=== PATIENT | female | born 1985 | race Caucasian/White ===

== ENCOUNTER 2017-01-14 13:02 | Emergency (ER) | payer SELFPAY ==
[~2017-01-14] VITALS: Ht 175.3 cm; Wt 87.7 kg
[~2017-01-14 13:02] MED LIST: HYDR-3533 PO; PENI500T PO
[2017-01-14 13:05] VITALS: BP 109/75; PULSE 72; RESP 16; TEMP 98.3; O2SAT 97
[2017-01-14] MEDS ORDERED: PENI500T PO ×2 (13:12→13:13)
--- NOTE | 2017-01-14 13:13 | PD ---
HPI Chief Complaint: Oral / Dental Pain or Problem Time Seen by Provider: 13:12 Travel History International Travel<30 days: No Contact w/Intl Traveler<30days: No Traveled to known affect area: No History of Present Illness HPI 30-year-old female with a history of emphysema presents to the emergency department for evaluation of right lower dental pain for 2 days. Patient states that last night she began to have pain in her right lower posterior molars and has had some swelling in this location as well. States that she has a history of dental problems but has yet to follow-up with a dentist. Denies any fever, chills, nausea, vomiting, difficulty swallowing. Denies , last menstrual period 1 week ago. No other complaints. PFSH Past Medical History Blood Disorders: No Anxiety: No Depression: No Cancer: No Cardiovascular Problems: No COPD: Yes (EMPHYSEMA) Diabetes: No Diminished Hearing: No Endocrine: No Gastrointestinal Disorders: No Genitourinary: No Immune Disorder: No Implanted Vascular Access Dvce: No Musculoskeletal: No Neurologic: No Psychiatric: No Reproductive: No Respiratory: No Immunizations Current: Yes ?: Not LMP: 3 DAYS Past Surgical History Section: Yes (2003) Gynecologic Surgery: Yes Thoracic Surgery: Yes (STATES SHE HAD R LUNG SX R/T BACTERIAL PNEUMONIA) Other Surgery: No Social History Alcohol Use: Yes (4-5 BEERS DAILY) Tobacco Use: Yes (1/2 ppd) Substance Use: Yes Allergies-Medications (Allergen,Severity, Reaction): Coded Allergies: No Known Allergies (Verified , 01/14/17) Reported Meds & Prescriptions Reported Meds & Active Scripts Active Penicillin V Potassium 500 Mg Tab 500 Mg PO Q8H 10 Days Review of Systems Except as stated in HPI: all other systems reviewed are Neg Physical Exam Narrative GENERAL: Well-nourished and well-developed pleasant female patient in no acute distress who is nontoxic appearing. SKIN: Warm and dry. HEAD: Normocephalic and atraumatic. No facial swelling. EYES: No injection, drainage, or hyphema noted. PERRLA. EOMI. ENT: No nasal drainage noted. Oropharynx is clear. DENTAL: Poor dentition with multiple dental caries throughout. Right lower molars teeth #28-30 are cracked to the gingiva and decayed with some erythema and swelling of the gingiva. NECK: Supple and the trachea is midline. CARDIOVASCULAR: Regular rate and rhythm. RESPIRATORY: Breath sounds are equal bilaterally with no accessory muscle use, wheezing, rhonchi, or crackles. NEUROLOGICAL: Awake, alert, and oriented. Normal speech and gait. Cranial nerves are grossly intact. Data Data Last Documented VS Vital Signs Date Time Temp Pulse Resp B/P Pulse Ox O2 Delivery O2 Flow Rate FiO2 01/14/17 13:05 98.3 72 16 109/75 97 MDM Medical Decision Making Medical Screen Exam Complete: Yes Emergency Medical Condition: Yes Differential Diagnosis Dental caries versus dental infection versus gingivitis Narrative Course 31-year-old female presents to the emergency department for evaluation of right lower dental pain for 2 days. Patient is afebrile, vital signs are stable. Patient has poor dentition overall and she does have some swelling and erythema of the right lower gingiva where her pain is located. Patient will be placed on penicillin VK. Instructed to follow-up as an outpatient with a dentist. Patient verbalizes understanding and agreement with treatment plan. Diagnosis Primary Impression: Dental infection Referrals: Dentist Patient Instructions: Dental Caries (ED), General Instructions Additional Instructions: Alternate Tylenol and ibuprofen as discharged on the box as needed for pain. Take medication as prescribed with food and a full glass of water. Follow-up with your dentist. Return to the ED for any acute worsening of symptoms. Med/Other Pt SpecificInfo: Prescription(s) given Scripts Penicillin V Potassium 500 Mg [id number] Mg PO Q8H 10 Days Ref 0 Prov:Jana Cazares MD 01/14/17 Disposition: 01 DISCHARGE HOME Condition: Stable Mary Trammell January 14, 2017 13:13
== END 2017-01-14 13:32 | disposition home or self-care (01) ==
LOC: PHEFT 13:02
DX: K04.7 Periapical abscess without sinus (principal); F17.210 Nicotine dependence, cigarettes, uncomplicated
CPT/HCPCS: 99282

== ENCOUNTER 2017-01-19 04:40 | Emergency (ER) | payer OTHER ==
[~2017-01-19] VITALS: Ht 172.7 cm; Wt 90.0 kg
[~2017-01-19 04:40] MED LIST changes: -HYDR-3533 PO
[2017-01-19 04:54] VITALS: BP 118/67; PULSE 83; RESP 18; TEMP 98.5; O2SAT 97
--- NOTE | 2017-01-19 05:04 | PD ---
HPI Chief Complaint: Psychiatric Symptoms Time Seen by Provider: 05:04 Travel History International Travel<30 days: No Contact w/Intl Traveler<30days: No Traveled to known affect area: No History of Present Illness HPI 31-year-old female presents to emergency department under [place] act for psychiatric evaluation. Patient believes this is a possible way for her mother to be sleeping with her boyfriend, and insists that she is not crazy. Per the [place]ado act, patient is scheduled to turn herself in this morning and is facing a 21 day retirement sentence. She was upset about this which caused an argument with her family ultimately resulted in her being placed under Maldonado act. Patient denies suicidal or homicidal ideations. Reports daily alcohol consumption in half pack tobacco cigarette smoking daily. She denies any medical history. No other symptoms to report. PFSH Past Medical History Blood Disorders: No Anxiety: No Depression: No Cancer: No Cardiovascular Problems: No COPD: Yes (EMPHYSEMA) Diabetes: No Diminished Hearing: No Endocrine: No Gastrointestinal Disorders: No Genitourinary: No Immune Disorder: No Implanted Vascular Access Dvce: No Musculoskeletal: No Neurologic: No Psychiatric: No Reproductive: No Respiratory: No Immunizations Current: Yes Tetanus Vaccination: Unknown Influenza Vaccination: No ?: Not Past Surgical History Section: Yes (2003) Gynecologic Surgery: Yes Thoracic Surgery: Yes (STATES SHE HAD R LUNG SX R/T BACTERIAL PNEUMONIA) Other Surgery: No Social History Alcohol Use: Yes (6 BEERS DAILY) Tobacco Use: Yes (1/2 ppd) Substance Use: Yes Allergies-Medications (Allergen,Severity, Reaction): Coded Allergies: No Known Allergies (Verified , 01/19/17) Reported Meds & Prescriptions Reported Meds & Active Scripts Active Penicillin V Potassium 500 Mg Tab 500 Mg PO Q8H 10 Days Review of Systems ROS Limitations: Uncooperative Except as stated in HPI: all other systems reviewed are Neg Physical Exam Exam Limitations: Uncooperative Narrative GENERAL: Unkempt female patient, in no acute distress SKIN: Focused skin assessment warm/dry. HEAD: Atraumatic. Normocephalic. EYES: Pupils equal and round. No scleral icterus. No injection or drainage. ENT: No nasal bleeding or discharge. Mucous membranes pink and moist. NECK: Trachea midline. No JVD. CARDIOVASCULAR: Tachycardic rate and rhythm. No murmur appreciated. RESPIRATORY: No accessory muscle use. Coarse, diminished. Breath sounds equal bilaterally. GASTROINTESTINAL: Abdomen soft, non-tender, nondistended. Hepatic and splenic margins not palpable. MUSCULOSKELETAL: No obvious deformities. No clubbing. No cyanosis. No edema. NEUROLOGICAL: Awake and alert. No obvious cranial nerve deficits. Motor grossly within normal limits. Normal speech. PSYCHIATRIC: Labile mood. Insight and judgment questionable. Data Data Last Documented VS Vital Signs Date Time Temp Pulse Resp B/P Pulse Ox O2 Delivery O2 Flow Rate FiO2 01/19/17 04:54 98.5 83 18 118/67 97 Orders Complete Blood Count With Diff (01/19/17 05:02) Comprehensive Metabolic Panel (01/19/17 05:02) Urinalysis - C+S If Indicated (01/19/17 05:02) Ed Urine Pregnancytest Poc (01/19/17 05:02) Psych Screen (01/19/17 05:02) Drug Screen, Random Urine (01/19/17 05:02) Alcohol (Ethanol) (01/19/17 05:02) Salicylates (Aspirin) (01/19/17 05:02) Tylenol (Acetaminophen) (01/19/17 05:02) MDM Medical Decision Making Medical Screen Exam Complete: Yes Emergency Medical Condition: Yes Medical Record Reviewed: Yes Differential Diagnosis Mood disorder versus personality disorder versus adjustment reaction disorder versus substance abuse Narrative Course 31-year-old female presents to the emergency department under [place] act for psychiatric evaluation. Patient appears angry but she is not in distress. She is poorly kempt. Lab work is ordered first psychiatric clearance. Pending no acute abnormality, patient will be medically cleared to undergo psychiatric screening for further evaluation and disposition. Mental health screening discussed with the patient. Psychiatric screen ordered. Diagnosis Primary Impression: Adjustment disorder with depressed mood Additional Impression: Alcohol intoxication Qualified Code: F10.929 - Alcohol intoxication, with unspecified complication Condition: Stable Malinda Coley January 19, 2017 05:04
[2017-01-19 05:24] LABS: AUTOMATED NEUTROPHIL # 4.9 TH/MM3 (1.8-7.7); BASOPHIL % 0.5 % (0.0-2.0); EOSINOPHIL # 0.1 TH/MM3 (0-0.4); EOSINOPHIL % 0.7 % (0.0-4.0); HEMATOCRIT 40.1 % (35.0-46.0); HEMO FLAGS DIFF FINAL; LYMPH % 37.4 % (9.0-44.0); LYMPHOCYTE # 3.4 TH/MM3 (1.0-4.8); MEAN CELL VOLUME 98.8 FL (80.0-100.0); MEAN CORPUSCULAR HEMOGLOBIN 34.8 PG (27.0-34.0); MEAN CORPUSCULAR HGB CONC 35.3 % (32.0-36.0); MONO % 6.9 % (0.0-8.0); NEUT % 54.5 % (16.0-70.0); PLATELET COUNT 285 TH/MM3 (150-450); RED BLOOD COUNT 4.06 MIL/MM3 (4.00-5.30); RED CELL DISTRIBUTION WIDTH 13.4 % (11.6-17.2)
[2017-01-19 05:40] LABS: BACTERIA, URINE RARE /hpf; BLOOD, URINE TRACE (NEG); COMMENT (UR) CULT NOT INDICATED; CULTURE IF INDICATED CULT NOT INDICATED; GLUCOSE,URINE NEG (NEG); KETONE, URINE NEG (NEG); MUCUS URINE FEW /lpf (OCC); NITRITE,URINE NEG (NEG); SQUAMOUS EPITHELIAL CELL URINE 18 /hpf (0-5); TRANSITIONAL EPI CELLS, URINE <1 /hpf; URINE COLOR LIGHT-YELLOW (YELLW/STRAW)
[2017-01-19 05:45] LABS: AMPHETAMINE, URINE NEG (NEG); BARBITURATES, URINE NEG (NEG); COCAINE, URINE POS (NEG)
[2017-01-19 05:51] LABS: ANION GAP 9 MEQ/L (5-15)
[2017-01-19 06:01] LABS: ACETAMINOPHEN LESS THAN 2.0 MCG/ML (10.0-30.0); ALKALINE PHOSPHATASE 47 U/L (45-117); ALT (GPT) 67 U/L (10-53); AST (GOT) 40 U/L (15-37); BICARBONATE 25.6 MEQ/L (21.0-32.0); BLOOD UREA NITROGEN 9 MG/DL (7-18); CHLORIDE 107 MEQ/L (98-107); GLOMERULAR FILTRATION RATE 78 ML/MIN (>89); POTASSIUM 3.8 MEQ/L (3.5-5.1); SODIUM (NA) 142 MEQ/L (136-145); TOTAL BILIRUBIN ADULT 0.2 MG/DL (0.2-1.0)
[2017-01-19 06:43] VITALS: BP 120/66; PULSE 92; RESP 20; O2SAT 100
--- NOTE | 2017-01-19 09:41 | PD.CONS ---
Provisional Diagnosis Admission Date Naylor I. Polysubstance dependence, including alcohol, cannabis and cocaine Naylor II. Unspecified personality disorder, r/o antisocial/borderline Naylor III. No significant medical history History of Present Illness Service Psychiatry Consult Requested By Primary Care Physician Unknown HPI The patient is a 31-year-old woman, domiciled with her mother in [place], unemployed, single, with psychiatric history of alcohol, cocaine, cannabis use disorder, no previous psychiatric hospitalizations, no previous suicidal attempts, Erica acted multiple time due to alcohol related issues, multiple incarcerations, no significant medical history, who was brought to emergency department under Mal[place]ado act for psychiatric evaluation. Patient believes this is a possible way for her mother to be sleeping with her boyfriend, and insists that she is not crazy. Per the Mal[place]ado act, patient is scheduled to turn herself in this morning and is facing a [facility] sentence. She was upset about this which caused an argument with her family ultimately resulted in her being placed under Maldonado act. She denies symptomatology of depression, she denies anxiety, she denies perceptual disturbances and psychosis. She denies suicidal and homicidal ideation, she denies visual and auditory hallucinations. Patient says that is shame that her mother who is a sleeping with her boyfriend and also is an alcoholic could Maldonado act her and send her to Hospital. During this evaluation patient is clinically sober already, she is logical, coherent and relevant. However, extremely disheveled, and with poor hygiene. She reports daily use of alcohol, cocaine and cannabis. She says that she drinks over 6 beers per day. Denies withdrawal symptomatology.. Review of Systems Constitutional: DENIES: Diaphoretic episodes, Fatigue, Fever, Weight gain, Weight loss, Chills, Dizziness, Change in appetite, Night Sweats Endocrine: DENIES: Abnorml menstrual pattern, Heat/cold intolerance, Polydipsia , Polyuria, Polyphagia Eyes: DENIES: Blurred vision, Diplopia, Eye inflammation, Eye pain, Vision loss , Photosensitivity, Double Vision Ears, nose, mouth, throat: DENIES: Tinnitus, Hearing loss, Vertigo, Nasal discharge, Oral lesions, Throat pain, Hoarseness, Ear Pain, Running Nose, Epistaxis, Sinus Pain, Toothache, Odynophagia Respiratory: DENIES: Apneas, Cough, Snoring, Wheezing, Hemoptysis, Sputum production, Shortness of breath Cardiovascular: DENIES: Chest pain, Palpitations, Syncope, Dyspnea on Exertion , PND, Lower Extremity Edema, Orthopnea, Claudication Gastrointestinal: DENIES: Abdominal pain, Black stools, Bloody stools, Constipation, Diarrhea, Nausea, Vomiting, Difficulty Swallowing, Anorexia Genitourinary: DENIES: Abnormal vaginal bleeding, Dysmenorrhea, Dyspareunia, Sexual dysfunction, Urinary frequency, Urinary incontinence, Urgency, Hematuria , Dysuria, Nocturia, Vaginal discharge Musculoskeletal: DENIES: Joint pain, Muscle aches, Stiffness, Joint Swelling, Back pain, Neck pain Integumentary: DENIES: Abnormal pigmentation, Pruritus, Rash, Nail changes, Breast masses, Breast skin changes, Nipple discharge Hematologic/lymphatic: DENIES: Bruising, Lymphadenopathy Immunologic/allergic: DENIES: Eczema, Urticaria Neurologic: DENIES: Abnormal gait, Headache, Localized weakness, Paresthesias, Seizures, Speech Problems, Tremor, Poor Balance Psychiatric: DENIES: Anxiety, Confusion, Mood changes, Depression, Hallucinations, Agitation, Suicidal Ideation, Homicidal Ideation, Delusions Past Family Social History Coded Allergies: No Known Allergies (Verified , 01/19/17) Active Scripts Penicillin V Potassium 500 Mg [id number] Mg PO Q8H 10 Days Ref 0 Prov:Jana Cazares MD 01/14/17 Discontinued Scripts Penicillin V Potassium 500 Mg [id number] Mg PO Q8H 10 Days Ref 0 Prov:Jana Cazares MD 01/14/17 Family History She says her mother is schizophrenic and alcoholic Social History Patient was born and raised in [place], she lives with her mother in [place], she is unemployed, single, her her highest level of education is 1 year college Patient's Strengths (min. 2) Verbal communication Physical Exam Physical exam no EPS, no tremors, no withdrawal symptoms, no stiffness present Vital Signs Vital Signs Date Time Temp Pulse Resp B/P Pulse Ox O2 Delivery O2 Flow Rate FiO2 01/19/17 06:43 92 20 120/66 100 01/19/17 04:54 98.5 Lab Results Toxicology is positive for cannabis and cocaine BAL is 257 Mental Status Examination Appearance overweight woman, poor dental hygiene, disheveled, cooperative, but irritable Speech: Unremarkable Orientation: x3 Memory: Unremarkable Thought Process: Logical Thought Content: Unremarkable Hallucination Type: None Suicidal Ideation: No Previous Suicide Attempts: No Homicidal Ideation: No Previous Homicide Attempts: No Judgment: WNL Affect if Inappropriate: Flat Mood: Appropriate Motor Activity: Normal gait Assessment & Plan Problem List: (1) Alcohol abuse with alcohol-induced mood disorder Assessment & Plan: On psychiatric evaluation today the patient does not present any evidence of acute depression, anxiety, jennifer or psychosis. Patient does not report any suicidal or homicidal ideation, denies visual and auditory hallucinations. She is now clinically sober, logical, coherent and relevant. Recent episode of aggressive behavior and emotional disturbance seems to be related with acute alcohol intoxication. At this moment the patient does not meet criteria for psychiatric admission. Patient has a long history of alcoholism, detox program was offered, but she declined. Support and motivation were provided. Maldonado act will be lifted. ICD Code: F10.14 Assessment & Plan Estimated LOS: Adam Flannery MD January 19, 2017 09:41
== END 2017-01-19 09:15 | disposition home or self-care (01) ==
LOC: NEPD 04:40
DX: F43.21 Adjustment disorder with depressed mood (principal); F10.129 Alcohol abuse with intoxication, unspecified; F14.20 Cocaine dependence, uncomplicated; F17.210 Nicotine dependence, cigarettes, uncomplicated; Y90.8 Blood alcohol level of 240 mg/100 ml or more
CPT/HCPCS: 80053; 80307; 81001; 84703; 85025; 99283

== ENCOUNTER 2017-06-06 09:13 | Emergency (ER) | payer SELFPAY ==
[~2017-06-06] VITALS: Ht 172.7 cm; Wt 87.0 kg
[2017-06-06 09:15] VITALS: BP 104/52; PULSE 74; RESP 16; TEMP 98.4; O2SAT 97
--- NOTE | 2017-06-06 09:33 | PD ---
HPI Chief Complaint: Complaint Time Seen by Provider: 09:31 Travel History International Travel<30 days: No Contact w/Intl Traveler<30days: No Traveled to known affect area: No History of Present Illness HPI Patient presents with urinary frequency urgency and discomfort for one day. Denies nausea vomiting diarrhea or fever. No new rashes. PFSH Past Medical History Blood Disorders: No Anxiety: No Depression: No Cancer: No Cardiovascular Problems: No COPD: Yes (EMPHYSEMA) Diabetes: No Diminished Hearing: No Endocrine: No Gastrointestinal Disorders: No Genitourinary: No Immune Disorder: No Implanted Vascular Access Dvce: No Musculoskeletal: No Neurologic: No Psychiatric: No Reproductive: No Respiratory: No Immunizations Current: Yes ?: Not Past Surgical History Section: Yes (2003) Gynecologic Surgery: Yes Thoracic Surgery: Yes (STATES SHE HAD R LUNG SX R/T BACTERIAL PNEUMONIA) Other Surgery: No Social History Alcohol Use: Yes (6 BEERS DAILY) Tobacco Use: Yes (/2 ppd) Substance Use: No Allergies-Medications (Allergen,Severity, Reaction): Coded Allergies: No Known Allergies (Verified , 06/06/17) Reported Meds & Prescriptions Reported Meds & Active Scripts Active No Active Prescriptions or Reported Medications Review of Systems General / Constitutional: No: Fever Eyes: No: Visual changes HENT: No: Headaches Cardiovascular: No: Chest Pain or Discomfort Respiratory: No: Shortness of Breath Gastrointestinal: No: Abdominal Pain Genitourinary: Positive: Urgency, Frequency, Dysuria Musculoskeletal: No: Pain Skin: No Rash Neurologic: No: Weakness Psychiatric: No: Depression Endocrine: No: Polydipsia Hematologic/Lymphatic: No: Easy Bruising Physical Exam Narrative GENERAL: Well-nourished, well-developed patient. SKIN: Focused skin assessment warm/dry. HEAD: Normocephalic. EYES: No scleral icterus. No injection or drainage. NECK: Supple, trachea midline. No JVD or lymphadenopathy. CARDIOVASCULAR: Regular rate and rhythm without murmurs, gallops, or rubs. RESPIRATORY: Breath sounds equal bilaterally. No accessory muscle use. GASTROINTESTINAL: Abdomen soft, non-tender, nondistended. MUSCULOSKELETAL: No cyanosis, or edema. BACK: Nontender without obvious deformity. No CVA tenderness. Data Data Last Documented VS Vital Signs Date Time Temp Pulse Resp B/P (MAP) Pulse Ox O2 Delivery O2 Flow Rate FiO2 06/06/17 09:15 98.4 74 16 104/52 (69) 97 Orders Orders Urinalysis - C+S If Indicated (06/06/17 09:17) Ed Urine Pregnancytest Poc (06/06/17 09:17) Labs Laboratory Tests Test 06/06/17 09:50 Urine Collection Type CLEAN CATCH Urine Color SANDIE Urine Turbidity MOD Urine pH 6.0 Urine Specific [place] 1.028 Urine Protein NEG mg/dL Urine Glucose (UA) NEG mg/dL Urine Ketones NEG mg/dL Urine Occult Blood NEG Urine Nitrite NEG Urine Bilirubin NEG Urine Leukocyte Esterase NEG Urine RBC 100-200 /hpf Urine WBC 3-5 /hpf Urine Squamous Epithelial Cells 6-8 /hpf Urine Amorphous Sediment MOD Microscopic Urinalysis Comment CULT NOT INDICATED Urine Collection Time 1001 MDM Medical Decision Making Medical Screen Exam Complete: Yes Emergency Medical Condition: Yes Differential Diagnosis UTI, urosepsis, dysuria, nephrolithiasis Narrative Course assessment and plan discussed with patient and at bedside Diagnosis Primary Impression: Hematuria Qualified Codes: R31.9 - Hematuria, unspecified Patient Instructions: General Instructions Additional Instructions: Encourage fluids and a cranberry supplement, follow-up with PCP, return to ED with any new onset of new symptoms Med/Other Pt SpecificInfo: Prescription(s) given Scripts Ciprofloxacin (Cipro) 500 Mg Tab 500 MG PO BID for Infection, #6 TAB 0 Refills Prov: Josue Oconnell MD 06/06/17 Disposition: 01 DISCHARGE HOME Condition: Good Josue Oconnell MD Jun 06, 2017 09:33
[2017-06-06 09:56] LABS: BLOOD, URINE NEG (NEG); GLUCOSE,URINE NEG (NEG); KETONE, URINE NEG (NEG); NITRITE,URINE NEG (NEG)
[2017-06-06 10:08] LABS: METHOD OF COLLECTION CLEAN CATCH; URINE COLOR AMBER (YELLW/STRAW)
[2017-06-06 10:09] LABS: COMMENT (UR) CULT NOT INDICATED; COMMENT2 (UR) MUCOUS PRESENT; CULTURE IF INDICATED CULT NOT INDICATED; RBC, URINE 100-200 /hpf (0-3)
[2017-06-06] MEDS ORDERED: CIPR-9 PO (10:20)
== END 2017-06-06 10:27 | disposition home or self-care (01) ==
LOC: PHED 09:13
DX: R31.9 Hematuria, unspecified (principal)
CPT/HCPCS: 81001; 84703; 99283

== ENCOUNTER 2017-08-29 08:58 | Emergency (ER) | payer SELFPAY ==
[~2017-08-29] VITALS: Ht 172.7 cm; Wt 91.0 kg
[~2017-08-29 08:58] MED LIST changes: +CIPR-9 PO; -PENI500T PO
[2017-08-29 09:08] VITALS: BP 130/60; PULSE 79; RESP 16; TEMP 98.1; O2SAT 97
[2017-08-29 09:29] LABS: BILIRUBIN, URINE NEG (NEG); BLOOD, URINE NEG (NEG); GLUCOSE,URINE NEG (NEG); KETONE, URINE NEG (NEG); NITRITE,URINE NEG (NEG); URINE LEUKOCYTE ESTERASE NEG (NEG)
[2017-08-29 09:30] LABS: URINE COLOR YELLOW (YELLW/STRAW)
[2017-08-29 09:34] LABS: AMORPHOUS SEDIMENT, URINE MOD; SQUAMOUS EPITHELIAL CELL URINE > 8 /hpf (0-5)
[2017-08-29] MEDS ORDERED: MACR100C2 PO (09:50)
--- NOTE | 2017-08-29 09:50 | PD ---
HPI Chief Complaint: Complaint Time Seen by Provider: 09:37 Travel History International Travel<30 days: No Contact w/Intl Traveler<30days: No Traveled to known affect area: No History of Present Illness HPI 32-year-old female patient presents to the ER today because she states that for the last 3 days she's been having urinary urgency, frequency, and burning on urination, feels like she has a UTI again. She states that she had a UTI several months ago. She denies any fevers, nausea, vomiting, or any other symptoms. She denies any unusual vaginal discharge, or vaginal itching. Modifying Factors: None Associated Signs & Symptoms: Urinary symptoms Risk Factors: Recent UTIs PFSH Past Medical History Blood Disorders: No Anxiety: No Depression: No Cancer: No Cardiovascular Problems: No COPD: Yes (EMPHYSEMA) Diabetes: No Diminished Hearing: No Endocrine: No Gastrointestinal Disorders: No Genitourinary: No Immune Disorder: No Implanted Vascular Access Dvce: No Musculoskeletal: No Neurologic: No Psychiatric: No Reproductive: No Respiratory: No Immunizations Current: Yes Influenza Vaccination: No ?: Not LMP: 30 DAYS Past Surgical History Section: Yes (2003) Gynecologic Surgery: Yes Thoracic Surgery: Yes (STATES SHE HAD R LUNG SX R/T BACTERIAL PNEUMONIA) Other Surgery: No Social History Alcohol Use: Yes (6 BEERS DAILY) Tobacco Use: Yes (1/2 ppd) Substance Use: No Allergies-Medications (Allergen,Severity, Reaction): Coded Allergies: No Known Allergies (Verified Adverse Reaction, Unknown, 08/29/17) Reported Meds & Prescriptions Reported Meds & Active Scripts Active Review of Systems Except as stated in HPI: all other systems reviewed are Neg Physical Exam Narrative GENERAL: Well-developed young female patient currently in mild distress. Awake and oriented 3. SKIN: Focused skin assessment warm/dry. HEAD: Atraumatic. Normocephalic. EYES: Pupils equal and round. No scleral icterus. No injection or drainage. ENT: No nasal bleeding or discharge. Mucous membranes pink and moist. NECK: Trachea midline. No JVD. CARDIOVASCULAR: Regular rate and rhythm. No murmur appreciated. RESPIRATORY: No accessory muscle use. Clear to auscultation. Breath sounds equal bilaterally. GASTROINTESTINAL: Abdomen soft, mild suprapubic tenderness without guarding or rebound, nondistended. Hepatic and splenic margins not palpable. Benign. MUSCULOSKELETAL: No obvious deformities. No clubbing. No cyanosis. No edema. NEUROLOGICAL: Awake and alert. No obvious cranial nerve deficits. Motor grossly within normal limits. Normal speech. PSYCHIATRIC: Appropriate mood and affect; insight and judgment normal. Data Data Last Documented VS Vital Signs Date Time Temp Pulse Resp B/P (MAP) Pulse Ox O2 Delivery O2 Flow Rate FiO2 08/29/17 09:08 98.1 79 16 130/60 (83) 97 Orders Orders Urinalysis - C+S If Indicated (08/29/17 09:11) Ed Urine Pregnancytest Poc (08/29/17 09:11) Labs Laboratory Tests Test 08/29/17 09:10 Urine Collection Type CLEAN CATCH Urine Color YELLOW Urine Turbidity SLIGHT Urine pH 6.0 Urine Specific [place] 1.024 Urine Protein NEG mg/dL Urine Glucose (UA) NEG mg/dL Urine Ketones NEG mg/dL Urine Occult Blood NEG Urine Nitrite NEG Urine Bilirubin NEG Urine Leukocyte Esterase NEG Urine Squamous Epithelial Cells > 8 /hpf Urine Amorphous Sediment MOD Microscopic Urinalysis Comment CULT NOT INDICATED Urine Collection Time [address] [facility] Medical Decision Making Medical Screen Exam Complete: Yes Emergency Medical Condition: Yes Medical Record Reviewed: Yes Interpretation(s) Laboratory Tests Test 08/29/17 09:10 Urine Squamous Epithelial Cells > 8 /hpf (0-5) Differential Diagnosis UTI versus bladder spasms versus hemorrhagic cystitis Narrative Course Patient is not . Abdomen is benign and I do not suspect an acute intra- abdominal process. Patient has symptoms that would indicate a UTI. However, her UA did not show any obvious UTI. At this point, considering patient's symptoms, my plan would be to empirically treat her for UTI. However, she should follow-up with primary care physician and urology especially symptoms are not going away with the antibiotics. She should return for any worsening in pain, fevers, vomiting, or new symptoms as needed. The plan was discussed with her and she states understanding. Diagnosis Primary Impression: Urinary tract infection symptoms Med/Other Pt SpecificInfo: Prescription(s) given Scripts Nitrofurantoin Monohydrate Macrocrystals (Macrobid) 100 Mg Cap 100 MG PO BID for Infection for 7 Days, #14 CAP 0 Refills Prov: Bia Martini MD 08/29/17 Disposition: 01 DISCHARGE HOME Condition: Stable Bia Martini MD Aug 29, 2017 09:50
== END 2017-08-29 09:58 | disposition home or self-care (01) ==
LOC: PHEFT 08:58
DX: N39.0 Urinary tract infection, site not specified (principal); R30.0 Dysuria; J44.9 Chronic obstructive pulmonary disease, unspecified; Z72.0 Tobacco use; Z72.89 Other problems related to lifestyle
CPT/HCPCS: 81001; 84703; 99283

== ENCOUNTER 2017-09-14 14:23 | Emergency (ER) | payer SELFPAY ==
[~2017-09-14] VITALS: Ht 172.7 cm; Wt 92.2 kg
[~2017-09-14 14:23] MED LIST changes: -CIPR-9 PO; +MACR100C2 PO
[2017-09-14 14:25] VITALS: BP 125/79; PULSE 82; RESP 16; TEMP 98.6; O2SAT 98
[2017-09-14] MEDS ORDERED: TRAM50TA PO (15:17)
[2017-09-14] MEDS ORDERED: PENI500T PO (15:17)
--- NOTE | 2017-09-14 15:19 | PD ---
HPI Chief Complaint: Oral / Dental Pain or Problem Time Seen by Provider: 14:53 Travel History International Travel<30 days: No Contact w/Intl Traveler<30days: No Traveled to known affect area: No History of Present Illness HPI This patient complains of dental pain. Duration is 2 days. She denies fever. She is working on getting a dentist. PFSH Past Medical History Hx Anticoagulant Therapy: No Blood Disorders: No Anxiety: No Depression: No Cancer: No Cardiovascular Problems: No COPD: Yes (EMPHYSEMA) Diabetes: No Diminished Hearing: No Endocrine: No Gastrointestinal Disorders: No Genitourinary: No Immune Disorder: No Implanted Vascular Access Dvce: No Musculoskeletal: No Neurologic: No Psychiatric: No Reproductive: No Respiratory: No Immunizations Current: Yes Tetanus Vaccination: Unknown ?: Not Past Surgical History Section: Yes (2003) Gynecologic Surgery: Yes Thoracic Surgery: Yes (STATES SHE HAD R LUNG SX R/T BACTERIAL PNEUMONIA) Other Surgery: No Social History Alcohol Use: Yes (6 BEERS DAILY) Tobacco Use: Yes (/2 ppd) Substance Use: No Allergies-Medications (Allergen,Severity, Reaction): Coded Allergies: No Known Allergies (Verified Adverse Reaction, Unknown, 09/14/17) Reported Meds & Prescriptions Reported Meds & Active Scripts Active Review of Systems General / Constitutional: No: Fever HENT: No: Headaches Cardiovascular: No: Chest Pain or Discomfort Physical Exam Narrative NECK: Symmetrical appearance, midline trachea. No mass or crepitus. Thyroid without enlargement, tenderness, or mass. SKIN: Focused skin assessment reveals no rash or ulcers. Skin is warm and dry. Palpation shows no induration or nodules. Oral cavity: Poor dentition. He has multiple rotted out molars. No acute gingivitis or abscess seen Data Data Last Documented VS Vital Signs Date Time Temp Pulse Resp B/P (MAP) Pulse Ox O2 Delivery O2 Flow Rate FiO2 09/14/17 14:25 98.6 82 16 125/79 (94) 98 MDM Medical Decision Making Medical Screen Exam Complete: Yes Emergency Medical Condition: Yes Medical Record Reviewed: Yes Differential Diagnosis Cavity, gingivitis, abscess Narrative Course I have reviewed the patient's electronic medical record. I wrote some penicillin and tramadol. Patient needs dental follow-up. Diagnosis Primary Impression: Dental infection Additional Instructions: The patient was warned about potential sedation for the medications they will receive on prescription. Follow up with dentist Med/Other Pt SpecificInfo: Prescription(s) given Scripts Tramadol (Tramadol) 50 Mg Tab 50 MG PO Q6H Y for PAIN, #15 TAB 0 Refills Prov: Gabo Newsome MD 09/14/17 Penicillin V Potassium (Penicillin V Potassium) 500 Mg Tab 500 MG PO Q8H for Infection, #20 TAB 0 Refills Prov: Gabo Newsome MD 09/14/17 Disposition: 01 DISCHARGE HOME Condition: Stable Gabo Newsome MD Sep 14, 2017 15:19
== END 2017-09-14 15:26 | disposition home or self-care (01) ==
LOC: PHEFT 14:23
DX: K04.7 Periapical abscess without sinus (principal); F17.200 Nicotine dependence, unspecified, uncomplicated; Z87.09 Personal history of other diseases of the respiratory system; Z72.89 Other problems related to lifestyle
CPT/HCPCS: 99284